=== PATIENT | male | born 1935 | race Caucasian/White ===

== ENCOUNTER 2018-10-10 21:37 | Inpatient (IN) ==
[2018-10-10] MEDS ORDERED: NITROGLYCERIN TOP ONE (21:58)
[2018-10-10] MEDS ORDERED: ASPIRIN PO ONE (21:58)
[2018-10-10 22:20] LABS: EOS% 8.6 % (0.0-10.0); HEMATOCRIT 43.4 % (42.0-52.0); HEMOGLOBIN 14.5 g/dL (14.0-18.0); LYMPH% 20.3 % (20.5-51.1); MCH 27.8 PG (27-31); MCHC 33.4 g/dL (33-37); MCV 83.1 FL (81-99); MONO% 6.9 % (1.7-9.3); NEUT% 63.1 % (42.2-75.2); PLT 154 X1000 (130-400); RBC 5.22 XMIL (4.7-6.1); RDW 14.6 % (11.5-14.5); WBC 6.54 X1000 (4.8-10.8)
[2018-10-10 22:21] LABS: BASO# 0.07 X1000 (0.0-0.2); BASO% 1.1 % (0.0-0.8); EOS# 0.56 X1000 (0.0-0.7); LYMPH# 1.33 X1000 (1.2-3.4); MONO# 0.45 X1000 (0.11-0.59); NEUT# 4.13 X1000 (1.4-6.5)
[2018-10-10 22:33] LABS: CALCIUM 9.7 mg/dL (8.8-10.2); CREATININE 1.5 mg/dL (0.7-1.2); POTASSIUM 4.4 mmol/L (3.5-5.1)
--- NOTE | 2018-10-10 23:42 | EKG Report ---
Test Performed on : 10/10/2018 9:41:54 PM Test Reason : cp Blood Pressure : / mmHG Vent. Rate : 087 BPM Atrial Rate : 087 BPM P-R Int : 000 ms QRS Dur : 084 ms QT Int : 350 ms P-R-T Axes : 000 -18 012 degrees QTc Int : 421 ms Accelerated Junctional rhythm. Nonspecific ST abnormality Abnormal ECG When compared with ECG of 29-NOV-2013 16:29, Junctional rhythm. has replaced Sinus rhythm. Vent. rate has increased BY 32 BPM Unconfirmed Result
[2018-10-11] MEDS ORDERED: DUONEB (A & A) INH ONE (00:27)
[2018-10-11] MEDS ORDERED: DUONEB (A & A) INH PRN (00:27)
[2018-10-11] MEDS ORDERED: ZOFRAN IV PRN (00:29)
[2018-10-11] MEDS ORDERED: TYLENOL PO PRN (00:29)
--- NOTE | 2018-10-11 00:41 | PROVIDER DOCUMENTATION ---
This chart was entered by Sadie Smith Scribe, acting as scribe for Ioana Davies MD. HPI-Chest Pain - General Chief Complaint: Chest Pain Stated Complaint: CHEST PAIN/SOB/HISTORY OF HEART PROBLEMS Time Seen by Provider: 10/10/18 21:49 Source: patient Allergies/Adverse Reactions: Patient Allergies Allergy/AdvReac Type Severity Reaction Status Date / Time poison oak extract Allergy ANAPHYLAXIS Verified 01/09/18 17:44 povidone-iodine Allergy ANAPHYLAXIS Verified 01/09/18 17:44 [From Betadine] shellfish derived Allergy ANAPHYLAXIS Verified 01/09/18 17:44 soap * [From Betadine] Allergy ANAPHYLAXIS Verified 01/09/18 17:44 Home Medications: Home Medication List Medication Instructions Recorded Confirmed Last Taken Type NK [No Home Medications] 07/17/16 01/09/18 Unknown History - History of Present Illness-CP Nature of Presenting Problem: Pt presents to ED W/ CP that he sts has been all day, he sts that the pain has been sharp and constant throughout the day and is accompanied by some chest heaviness and SOB that is worsening. Pt sts that he has had pain intermittently for the last 2 weeks, but tonight it got worse. No cough no fever, no diaphoresis, no nausea. Denies any medical history. Pt sts that he sees his PCP regularly and that he had bloodwork about 2 months ago and everything came back normal. Location: reports: substernal Chest Pain Radiation: reports: no radiation Quality of Pain: reports: sharp Severity in ED: moderate Onset/Duration: this morning, other (throughout the day) Timing: still present Context/Activities at Onset: reports: none Modifying Factors: improves with: nothing Associated Symptoms: denies: abdominal pain, nausea, vomiting Nitro Today/Relief: no nitro taken today Aspirin Treatment Today: no aspirin today Prior Chest Pain/Cardiac Workup: reports: no prior cardiac workup Similar Symptoms Previously?: No Recently Seen Here or By Another Healthcare Provider: No Review of Systems - Adult - REVIEW OF SYSTEMS - ADULT Constitutional: denies: chills, fever Eyes: reports: no symptoms reported Ears, Nose, Mouth & Throat: reports: no symptoms reported Cardiovascular: reports: chest pain Respiratory: reports: cough, shortness of breath. denies: wheezing Gastrointestinal: reports: no symptoms reported. denies: abdominal pain, nausea, vomiting Genitourinary: reports: no symptoms reported Musculoskeletal: reports: no symptoms reported Integumentary: reports: no symptoms reported Neurological: reports: no symptoms reported. denies: dizziness/vertigo, headache/migraines Psychiatric: reports: no symptoms reported Endocrine: reports: no symptoms reported Hematologic/Lymphatic: reports: no symptoms reported Allergic/Immunologic: reports: no symptoms reported All Other Systems: Reviewed and Negative Past History - Adult - PAST MEDICAL HISTORY-ADULT Review of Records: reports: Old Records Reviewed, Nursing Assessment Review, Medications Reviewed, Social history reviewed & non-contributory. Major Childhood Illnesses: reports: denies history Cardiovascular: reports: denies history Respiratory: reports: denies history Gastrointestinal: reports: denies history Obstetrical/Gynecological: reports: denies history Genitourinary: reports: denies history Musculoskeletal: reports: denies history Neurological: reports: Seizures/Epilepsy (seizures ), TIA Psychiatric: reports: denies history Endocrine/Immune: reports: denies history Other Conditions: reports: denies history - PRIOR SURGERIES/PROCEDURES Surgical/Procedure History: reports: appendectomy, cholecystectomy, hernia repair, joint replacement (total hip ) - PRIOR HOSPITALIZATIONS Prior Hospitalizations: reports: none - IMMUNIZATION STATUS Childhood Immunizations: See Nurse Assessment Flu Vaccine: See Nurse Assessment - FAMILY HISTORY Family History: reviewed, not pertinent - SOCIAL HISTORY Smoking: denies, non-smoker Substance Use: none presently/history of abuse Alcohol Use Frequency: never Living Situation: family Physical Exam-General - PHYSICAL EXAM-ADULT Initial Vital Signs Reviewed: Yes - CONSTITUTIONAL General Appearance: appears well, alert, no apparent distress - EYES Eyes: PERRL/EOMI, pink conjunctivae - HEAD, EARS, NOSE, MOUTH & THROAT HENMT: normocephalic/atraumatic, moist mucous membranes, normal ENT inspection - NECK Neck: non-tender, full range of motion, supple, normal inspection - RESPIRATORY Respiratory: chest non-tender, lungs clear, normal breath sounds - CARDIOVASCULAR Cardiovascular: normal peripheral pulses, regular rate, rhythm, no edema, no JVD - GASTROINTESTINAL (ABDOMEN) Abdominal Exam: normal bowel sounds, non tender, soft - MUSCULOSKELETAL Back Exam: normal inspection Extremity: normal range of motion, non-tender, normal gait, normal inspection - SKIN Integumentary: normal color, normal turgor, warm/dry - NEUROLOGIC Neurologic: grossly normal, no motor/sensory deficits - PSYCHIATRIC Psych/Mental Status: normal mood/affect, normal thought content, normal thought process, oriented x 3 - HEART Score HEART Score: History: Highly Suspicious HEART Score: ECG: Non-Specific Repolarization Disturbance/LBBB/PM HEART Score: Age: > or = 65 Years HEART Score: Risk Factors for Atherosclerotic Disease: No Risk Factors Known HEART Score: Troponin: < or = Normal Limit Total HEART Score:: 5 Progress - PLAN OF CARE/RESULTS Progress/Plan/Lab Results: Vital Signs - 8 hr 10/10/18 21:41 10/10/18 22:06 10/10/18 22:31 Temperature 97.7 F Pulse Rate 87 81 78 Respiratory Rate 18 21 22 Blood Pressure 122/75 116/76 138/77 O2 Sat by Pulse Oximetry 96 95 95 10/10/18 22:50 10/10/18 23:00 10/10/18 23:01 Temperature Pulse Rate 80 80 79 Respiratory Rate 20 27 H 21 Blood Pressure 127/95 O2 Sat by Pulse Oximetry 95 95 94 L 10/10/18 23:10 10/10/18 23:20 10/10/18 23:30 Temperature Pulse Rate 80 81 80 Respiratory Rate 21 21 22 Blood Pressure O2 Sat by Pulse Oximetry 94 L 94 L 94 L 10/10/18 23:31 10/10/18 23:40 10/10/18 23:50 Temperature Pulse Rate 80 90 84 Respiratory Rate 22 20 14 Blood Pressure 134/78 O2 Sat by Pulse Oximetry 94 L 94 L 94 L 10/11/18 00:00 10/11/18 00:01 10/11/18 00:10 Temperature Pulse Rate 84 85 90 Respiratory Rate 15 17 15 Blood Pressure 124/67 O2 Sat by Pulse Oximetry 94 L 95 93 L 10/11/18 00:20 10/11/18 00:30 10/11/18 00:31 Temperature Pulse Rate 87 86 86 Respiratory Rate 26 H 20 22 Blood Pressure 115/73 O2 Sat by Pulse Oximetry 94 L 95 94 L Laboratory Results - last 24 hr 10/10/18 10/10/18 10/10/18 22:06 22:06 22:06 WBC 6.54 RBC 5.22 Hgb 14.5 Hct 43.4 MCV 83.1 MCH 27.8 MCHC 33.4 RDW Std Deviation 14.6 H Plt Count 154 MPV 10.0 Immature Gran % (Auto) 0.0 Neut % (Auto) 63.1 Lymph % (Auto) 20.3 L Robeson % (Auto) 6.9 Eos % (Auto) 8.6 Baso % (Auto) 1.1 H Immature Gran # (Auto) 0.00 Neut # (Auto) 4.13 Lymph # (Auto) 1.33 Robeson # (Auto) 0.45 Eos # (Auto) 0.56 Baso # (Auto) 0.07 Sodium 138 Potassium 4.4 Chloride 101 Carbon Dioxide 28 Anion Gap 9 BUN 24 H Creatinine 1.5 H Estimated GFR/1.73 m2 45 BUN/Creatinine Ratio 16 Glucose 103 Calculated Osmolality 280 Calcium 9.7 Troponin T Shj-I-Egyipwlcgle Pept 446 10/10/18 22:06 WBC RBC Hgb Hct MCV MCH MCHC RDW Std Deviation Plt Count MPV Immature Gran % (Auto) Neut % (Auto) Lymph % (Auto) Robeson % (Auto) Eos % (Auto) Baso % (Auto) Immature Gran # (Auto) Neut # (Auto) Lymph # (Auto) Robeson # (Auto) Eos # (Auto) Baso # (Auto) Sodium Potassium Chloride Carbon Dioxide Anion Gap BUN Creatinine Estimated GFR/1.73 m2 BUN/Creatinine Ratio Glucose Calculated Osmolality Calcium Troponin T 0.023 Dqt-B-Fwvovpneidn Pept Orders Category Date Time Status Admit - [facility] Routine AdmDCTranf 10/11/18 00:29 Active Activity - Up with Assistance ORDERED Care 10/11/18 00:29 Active Apply Mechanical Device [QM] ORDERED Care 10/11/18 00:29 Active IV Insertion ORDERED Care 10/10/18 21:58 Completed Intake and Output-Strict ORDERED Care 10/11/18 00:29 Active Vital Signs Order Q 8-HR ASSESS Care 10/11/18 00:29 Active Z-Document. for Tele Applied ORDERED Care 10/11/18 00:29 Active NPO Diet 10/11/18 00:29 Active CHEST-1 VIEW [RAD] Stat Exams 10/10/18 21:58 Taken Chest [CT THORAX W/O CONTRAST] [CT] Stat Exams 10/11/18 00:28 Ordered BASIC METABOLIC PANEL [CHEM] Stat Lab 10/10/18 22:06 Completed CBC WITH DIFF [HEME] Stat Lab 10/10/18 22:06 Completed MAGNESIUM [CHEM] Routine Lab 10/11/18 06:00 Ordered PRO B-NATRIURETIC PEPTIDE Stat Lab 10/10/18 22:06 Completed TROPONIN T Stat Lab 10/10/18 22:06 Completed TSH Routine Lab 10/11/18 06:00 Ordered Acetaminophen [Tylenol] Med 10/11/18 00:29 Active 650 mg PO Q6H PRN PRN Albuterol 2.5MG/Ipratrop 0.5MG [Duoneb (A & A)] Med 10/11/18 00:27 Discontinued 3 ml INH NOW ONE Albuterol 2.5MG/Ipratrop 0.5MG [Duoneb (A & A)] Med 10/11/18 00:27 Active 3 ml INH Q2H PRN PRN Aspirin Med 10/10/18 21:58 Discontinued 325 mg PO NOW ONE Nitroglycerin Med 10/10/18 21:58 Discontinued 0.5 inch TOP NOW ONE Ondansetron [Zofran] Med 10/11/18 00:29 Active 4 mg IV Q4H PRN PRN Aerosol Treatments Routine Oth 10/11/18 00:28 Active Aerosol Treatments Stat Oth 10/11/18 00:28 Active Telemetry [OM.EQ] Routine Oth 10/11/18 00:29 Active EKG [EKG] Stat Ther 10/10/18 21:40 Draft Transfer/Admit Order [TRANSFER] Routine Transfer 10/11/18 00:31 Ordered chest pain will further evaluate for causes including but not limited to acs, arrythmia, muscular pain, chf, pna, pe, ptx Result Diagrams: 10/10/18 22:06 10/10/18 22:06 - REASSESSMENT Reassessment #1 Status: improving (chest pain resolved, ED work up unremarkable but presentation concerning for ACS. Will admit for further evaluation and treatment. Discussed case with Dr. Valdez, hospitalist, who will see and admit pt.) - EKG 1 Time of EKG reading by physician:: 21:44 EKG Read and Signed by:: Ioana Davies EKG Interpretation (*Must complete 3 of following elements*): Abnormal (accle rated junctional rhythm, Nonspecific ST abnormality, Abnormal ECG) Rate: 87 Rhythm: Accelerated junctional rhythm [place]: normal [place] Interval: normal - XRAY 1 XRAY Study: Chest Impression: Normal Departure - Departure Date of Disposition Decision: 10/10/18 Time of Disposition Decision: 23:44 DIAGNOSIS: Chest pain Qualifiers: Chest pain type: unspecified Qualified Code(s): R07.9 - Chest pain, unspecified Disposition: ADMITTED INPATIENT 09 Certified Medical Emergency: Emergent Condition: Good - Critical Care Note This patient required my direct & personal management of CC.: No Attestation - Physician/ BRENDA Attestation Patient care was provided by Advanced Practice Provider:: No The physician spent face to face time with patient:: Yes Advanced Practice Provider documentation review:: Supervising physician onsite and consulted in the evaluation and care of this patient. The physician did have a face to face encounter with the patient. This chart was documented by the indicated scribe, (Sadie Smith, Arunaibremi) and accurately reflects the services I performed and decisions made by me, Ioana Davies MD, as attested by the provider's signature.
[2018-10-11] MEDS: NITROGLYCERIN TOP SCH ×3 (01:00→13:41)
--- NOTE | 2018-10-11 01:51 | HISTORY AND PHYSICAL ---
CHIEF COMPLAINT: Chest pain. HISTORY OF PRESENT ILLNESS: Mr. Duval is an 82-year-old male who looks younger than his stated age. He has no past medical history. His primary care provider is Derek Guevara. He does go for yearly physicals, does not take any home medications. He started having coughing this morning and started having substernal left chest pain. It did not radiate into his neck, back or jaw. It seemed to be a stabbing pain. It was not relieved with nitroglycerin in the emergency room. The patient continues to have chest pain. He will be admitted for further evaluation and treatment. PAST MEDICAL HISTORY: None to note. PREVIOUS SURGICAL HISTORY: 1. Hernia repair. 2. Appendectomy. 3. Volvulus resolution as a child. FAMILY HISTORY: Positive for hypertension. Denies any other chronic illness. SOCIAL HISTORY: He continues to work at [employer], is very active. Has not smoked since his 40s. He did start smoking at age 14. Was never more than a half a pack a day smoker. Has not had any alcohol since 1989. He was never a heavy drinker either. No illicit drugs. is at bedside, very supportive. HOME MEDICATIONS: None. ALLERGIES: Poison phoebe extract, shellfish-derived soap, shellfish and iodine. Shellfish, and shellfish derivatives and IV contrast cause the patient to have anaphylaxis. REVIEW OF SYSTEMS: Fourteen-point review of systems conducted with the patient. Pertinent positives listed above in the HPI. All other systems reviewed and found to be negative. PHYSICAL EXAMINATION: VITAL SIGNS: Temperature 97.7, pulse 78, respirations 22, blood pressure 138/77, oxygen saturation 95% on room air. GENERAL: Pleasant 82-year-old male lying in the ER stretcher, answers all questions appropriately. He is alert and oriented times 3, in no acute distress. HEENT: Head is atraumatic, normocephalic. Pupils equal, round, reactive to light. Extraocular eye movement is intact. Sclerae are anicteric. Conjunctiva is pink. Oral mucosa is moist. NECK: Supple. No JVD. No thyromegaly. Trachea is midline. No cervical lymphadenopathy. CARDIAC: S1, S2 appreciated. No murmurs, gallops or rubs. LUNGS: Expiratory wheezing noted throughout the air lees. Symmetric rise and fall with respirations. No rhonchi. No rales. EXTREMITIES: No clubbing, cyanosis or edema. Two-plus pedal pulses bilaterally. GENITOURINARY: No bladder distention. Patient voids. Otherwise deferred. NEUROLOGIC: Alert and oriented times 3. No focal motor deficits. Otherwise nonfocal examination. SKIN: Warm, dry, intact. DIAGNOSTIC DATA: Chest x-ray: No acute disease. EKG: Nonspecific ST changes. LABORATORY DATA: CBC within normal limits. Chemistry within normal limits aside from BUN of 24 and creatinine of 1.5. Troponin is 0.023. ASSESSMENT AND PLAN: 1. Chest pain, rule out acute myocardial infarction. Patient continues to have chest pain. We will do a stress test tomorrow morning, trend cardiac enzymes. Nitroglycerin half an inch q.6 hours. NPO after midnight. 2. Questionable chronic obstructive pulmonary disease exacerbation versus pneumonia that could not be seen on the plain film. We will order a CT without contrast. We will give DuoNebs q.2 hours as needed for wheezing, a DuoNeb now. The patient denies any type of history of asthma. He continues to still be able to walk long distances. Patient may need to follow up with a specialist or his primary care provider to get pulmonary function tests completed. 3. Chronic kidney disease 3. Patient is around his baseline creatinine of 1.5. Aware. Further recommendations per patient clinical course. Dictated by EDWINA Narvaez for Ashleigh Valdez MD cc: EDWINA Narvaez MD Kenneth E. Mashburn, MD Independent exam and assessment performed by me. Exam only notable for scattered expiratory wheezing. CT thorax does not show any gross infiltrate or edema of note. Cont. with nebs. MTDD
[2018-10-11 03:22] LABS: CK INDEX 2.9 (0.0-2.5); CK-MB 8.12 ng/mL (0.0-5.0)
--- NOTE | 2018-10-11 07:28 | Diag Imaging Result Doc PS360 ---
CHEST-1 VIEW - 10/10/2018 INDICATION: chest pain COMPARISON: 08/26/2016 FINDINGS: The lungs are normally expanded and clear. Heart size and mediastinal contours are normal. No pneumothorax or pleural effusion. IMPRESSION: Negative exam. Electronically signed by Geovani Fischer 10/11/2018 7:26 AM
--- NOTE | 2018-10-11 08:13 | Diag Imaging Result Doc PS360 ---
EXAM: CT THORAX W/O CONTRAST INDICATION: CP, wheezing TECHNIQUE: This exam was performed using automated exposure control, adjustment of mA or kV according to patient size, and/or use of iterative reconstruction technique. COMPARISON: None. FINDINGS: There is mild subsegmental atelectasis at the lung bases. The lungs are grossly clear, otherwise. There is no pleural fluid collection and no pneumothorax. The heart is borderline prominent. There is no evidence of significant mediastinal or hilar lymphadenopathy. Limited views of the upper abdomen reveals a 2.8 cm simple appearing cyst at the upper pole of the right kidney. There are degenerative changes throughout the spine. There is no evidence of acute osseous abnormality. IMPRESSION: Mild subsegmental atelectasis at the lung bases. No definite acute pathology, otherwise. Electronically signed by Sin Parikh 10/11/2018 8:10 AM
--- NOTE | 2018-10-11 08:38 | EKG Report ---
Test Performed on : 10/11/2018 08:29:40 AM Test Reason : cp Blood Pressure : / mmHG Vent. Rate : 070 BPM Atrial Rate : 070 BPM P-R Int : 246 ms QRS Dur : 090 ms QT Int : 394 ms P-R-T Axes : 011 -11 047 degrees QTc Int : 425 ms Sinus rhythm. with 1st degree AV block. Otherwise normal ECG When compared with ECG of 10-OCT-2018 21:41, (Unconfirmed) Sinus rhythm. has replaced Junctional rhythm. Confirmed by Iker Davis MD ([id number]) on 10/13/2018 9:00:13 PM
[2018-10-11] MEDS ORDERED: LEXISCAN ONE (09:30)
[2018-10-11 10:49] LABS: CK INDEX 2.3 (0.0-2.5); CK-MB 7.61 ng/mL (0.0-5.0)
[2018-10-11] MEDS ORDERED: SOLU-MEDROL IV SCH (11:45)
[2018-10-11] MEDS ORDERED: SODIUM BICARBONATE 8.4% 150 MEQ in D5W 1,000 ML IV SCH (12:45)
--- NOTE | 2018-10-11 12:48 | CONSULTATION ---
DATE OF CONSULTATION: 10/11/2018 IMPRESSION: 1. Intermittent left-sided chest discomfort, possibly related to acute bronchitis. The patient does have slight elevation in troponin. ECG is benign. 2. Cough and wheezing suggestive of acute bronchitis. 3. Previous cigarette use in the past. RECOMMENDATIONS: 1. Treat acute bronchitis. We will add parenteral corticosteroids and bronchodilators. 2. Echocardiography. 3. Cancel Lexiscan stress study as the patient demonstrates significant wheezing. 4. Further evaluation of his chest discomfort in this setting might best be accomplished with coronary angiography. This was discussed with the patient. HISTORY: This 82-year-old white male with past history of cigarette use in the past, came to the emergency room with recurrent chest discomfort, shortness of breath as well as cough. The patient describes sharp left-sided chest discomfort that has been occurring very frequently. He has also had cough and shortness of breath. There has been chest pressure as well. There is no past history of cardiac problems. Troponins were slightly elevated. PAST MEDICAL HISTORY: Previous cigarette use in the past. PAST SURGICAL HISTORY: Includes hernia repair, appendectomy, and repair of volvulus as a child. ALLERGIES: He has multiple drug allergies as listed in the electronic medical record. MEDICATIONS PRIOR TO ADMISSION: As listed. SOCIAL HISTORY: Patient is . 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 He has history of previous cigarette use on a regular basis but quit 20 years ago or so. He no longer drinks alcohol, having quit over 20 years ago. FAMILY HISTORY: Positive for hypertension but negative for premature coronary disease. REVIEW OF SYSTEMS: Pulmonary: Noteworthy for shortness of breath, cough and atypical chest pain. Gastrointestinal: Negative. Constitutional: Negative. Remainder of review of systems negative/noncontributory with 14 total systems reviewed. PHYSICAL EXAMINATION: General: This is a pleasant, elderly white male, in no distress. Vital signs: Blood pressure 119/63, heart rate 69. HEENT: Extraocular movements intact. Mucous membranes moist. Neck: Supple. No jugular venous distention. There are no carotid bruits. Chest: Auscultation reveals bilateral scattered expiratory wheezes. Cardiac: Reveals a regular rate and rhythm without appreciable murmur or gallop. Abdomen: Soft. Bowel sounds normal. Extremities: Without edema. Neurologic: Reveals him to be alert and fully oriented. Speech is fluent and he moves all 4 extremities equally well. Skin: Warm and dry. Psychiatric: Reveals mood to be appropriate. DIAGNOSTIC DATA: A 12 lead EKG demonstrates sinus rhythm with first degree AV block. LABORATORY DATA: Includes a sodium 138, potassium 4.4, chloride 101, carbon dioxide 28, BUN 24, creatinine 1.5, glucose 103. White blood cell count 6.54, hematocrit 43.4, hemoglobin 14.5, platelet count 154,000. Magnesium 2.0. TSH 4.69. Initial troponin T 0.023. Followup troponin T 0.012 and third troponin T of 0.025. CPK initially 200 with followup CPK of 330. CPK/MB index 2.9. cc: Osorio Johnson MD
[2018-10-11] MEDS: SOLU-MEDROL IV SCH ×2 (13:04→21:00)
--- NOTE | 2018-10-11 14:18 | Diag Imaging Result Document ---
PROCEDURE NAME: MYOCARDIAL PERFU SCAN, REST - 10/11/2018 INDICATION: Chest pain. PROCEDURE PERFORMED: Rest myocardial perfusion imaging. PROCEDURE IN DETAIL: Mr. Duval was brought to the nuclear laboratory and had a resting study performed with injection of 15.9 mCi of technetium-99m sestamibi with usual imaging protocol utilized. FINDINGS: 1. No evidence of abnormal extracardiac uptake. 2. Rest perfusion imaging demonstrates a small size, mild intensity defect located in the mid and basal inferior segments. Gating was not performed on this study. This was a rest only study. cc: MD Charlie Dior CRNP
[2018-10-11] MEDS: DUONEB (A & A) INH SCH ×4 (14:28→23:35)
--- NOTE | 2018-10-11 15:58 | ECHO REPORT ---
ORDER DATE: 10/11/2018 INDICATIONS: Chest pain. FINDINGS: 1. Right atrium is normal in size at 3 cm. 2. Mild tricuspid regurgitation. RV systolic pressure of 35. 3. Normal RV size and systolic function. 4. Trace pulmonic insufficiency. 5. Mild left atrial enlargement with a dimension of 4.1 cm. 6. No mitral valve prolapse. Mild mitral regurgitation. No evidence of mitral stenosis. 7. Normal LV size, end-diastolic dimension of 5 cm. Mild left ventricular hypertrophy with a posterior and interventricular septal wall thickness 1.0 and 1.2 cm respectively. Normal LV systolic function. Estimated EF of 60% to 65%. 8. Aortic valve opens well. There is mild to moderate aortic insufficiency. No stenosis. The valve is trileaflet. 9. Aorta is dilated at the root with a dimension of 5 cm. 10. No pericardial effusion identified. cc: MD Kelby Dior MD
--- NOTE | 2018-10-11 17:55 | CONSULTATION ---
DATE OF CONSULTATION: 10/11/2018 REQUESTING PHYSICIAN: Kelby Basilio MD REASON FOR CONSULTATION: Possible COPD. HISTORY OF PRESENT ILLNESS: This is an 82-year-old male with a medical history of chronic kidney disease. He presented to the ER last night with chest pain accompanied by chest heaviness and shortness of breath. Initial CXR in the ER is not significant. CT chest without contrast this morning showing mild subsegmental atelectasis at the lung bases, but no definite acute pathology. He has been admitted to the medical floor with chest pain to rule out acute myocardial infarction and questionable COPD exacerbation versus pneumonia. At the time of my examination, patient just came back from echocardiogram. He reports chronic cough with some yellow, thick phlegm occasionally, wheezing, shortness of breath, acute sinus headache and chronic intermittent chest pain. He reports his cough suddenly became really bad yesterday morning. He coughed so much that eventually he developed sharp constant chest pain and acute right hip pain. The patient did report that he has been evaluated by some crane rigger back in 2009 for dyspnea on exertion, but he has been never diagnosed with COPD. He reports no palpitation, fever, chill, abnormal weight change, heartburn, pedal edema or paroxysmal nocturnal dyspnea. PAST MEDICAL HISTORY: Chronic kidney disease, stage 3. PREVIOUS SURGERY: 1. Hernia repair. 2. Appendectomy. 3. Volvulus resolution as a child. 4. Bilateral hip replacement. FAMILY HISTORY: Positive for hypertension. SOCIAL HISTORY: The patient is and lives with his at home. He works for [employer] most of the time during the week. He started smoking at 14yo, but quit at 40 yo. He has about a [id number] smoking history. He used to drink and quit since 1989. He has no illicit drug use. ALLERGIES: Poison oak extract, shellfish derived and Betadine. REVIEW OF SYSTEMS: A 10-point review of systems was conducted, and the pertinent is listed within the HPI, otherwise not contributory. PHYSICAL EXAMINATION: Vital Signs: Temperature 98.3 degrees, blood pressure 137/41, pulse 79, respiratory rate 18, oxygen saturation 97% on room air. General: Appears younger than stated age. Sitting on the edge of the bed with his at the bedside. In no acute distress. HEENT: Atraumatic. Trachea midline. Mucosa pink and moist. Right eyelid drooping noted. Respiratory: Audible wheezing, but no accessory muscle use noted. Auscultation revealed prolonged expiratory phase and expiratory wheezing throughout all the lung lees. Cardiovascular: Regular rate and rhythm. Gastrointestinal: Nontender. Bowel sounds normoactive in all 4 quadrants. Soft and mildly distended. Extremities: No pedal edema. Dorsalis pedis 2+ bilaterally. No cyanosis and no clubbing. Neurologic: Alert. Weakness in the bilateral extremities with RLE worse. Speech fluent. Follows commands. Alert, oriented x3. LABORATORY DATA: CK is 330, CK-MB 7.61. IMAGING DATA: See HPI. ASSESSMENT: This is an 82-year-old male with chronic kidney disease stage 3. He has been admitted to the medical floor since this morning with chest pain and suspected chronic obstructive pulmonary disease exacerbation versus pneumonia. 1. Suspected chronic obstructive pulmonary disease exacerbation. 2. Left-sided chest pain which is worse with cough. 3. Mild subsegmental atelectasis at the lung bases per CT without contrast. 4. Chronic cough which is worse significantly since yesterday. 5. Chronic dyspnea on exertion. PLAN: 1. Start supplemental oxygen if needed. 2. Continue antibiotic, steroid, and bronchodilators per Dr. Johnson. 3. Recommend outpatient pulmonary function test if patient's heart condition allows. Thank you for the courtesy of this consult. Dictated by EDWINA Haney for Kenn Yates MD cc: EDWINA Haney MD [facility]
[2018-10-11 18:28] LABS: CK INDEX 1.5 (0.0-2.5); CK-MB 6.51 ng/mL (0.0-5.0)
[2018-10-12] MEDS: NITROGLYCERIN TOP SCH ×4 (02:48→19:41)
[2018-10-12] MEDS: DUONEB (A & A) INH SCH ×2 (03:21→07:39)
[2018-10-12] MEDS: SOLU-MEDROL IV SCH ×4 (04:50→20:43)
[2018-10-12 05:41] LABS: INR 0.95; PROTIME 13.4 Seconds (11.0-16.0)
[2018-10-12] MEDS ORDERED: PHENERGAN WITH CODEINE LIQUID PO PRN (05:44)
[2018-10-12 05:51] LABS: CALCIUM 8.9 mg/dL (8.8-10.2); CREATININE 1.2 mg/dL (0.7-1.2); MAGNESIUM 1.9 mg/dL (1.5-2.7)
--- NOTE | 2018-10-12 07:26 | EKG Report ---
Test Performed on : 10/12/2018 06:16:47 AM Test Reason : [facility] Blood Pressure : / mmHG Vent. Rate : 086 BPM Atrial Rate : 086 BPM P-R Int : 228 ms QRS Dur : 092 ms QT Int : 378 ms P-R-T Axes : 046 -13 005 degrees QTc Int : 452 ms Sinus rhythm. with 1st degree AV block. Moderate voltage criteria for LVH, may be normal variant Nonspecific T wave abnormality Inferior leads Borderline ECG When compared with ECG of 11-OCT-2018 08:29, (Unconfirmed) Nonspecific T wave abnormality now evident in Inferior leads Confirmed by Iker Davis MD ([id number]) on 10/13/2018 9:08:40 PM
[2018-10-12] MEDS: BENADRYL IV ONE ×2 (07:54→08:04)
[2018-10-12] MEDS: LEVAQUIN 500 MG/D5W 500 MG/100 ML IVPB IV SCH ×2 (07:55→08:04)
[2018-10-12] MEDS: ASPIRIN PO SCH ×2 (07:55→08:04)
[2018-10-12 08:03] LABS: ALLEN TEST YES; BE 0.8 mmoll (-3.0-3.0); BLOOD TYPE ARTERIAL; HCO3-(ACT) 25.5 mmoll (20.0-26.0); METHB 1.4 % (0.0-1.5); O2(CT) 18.6 mL/dL (15.0-23.0); O2HB 94.4 % (95.0-99.0); PCO2(98.6) 39 mmHg (35-45); PO2(98.6) 77 mmHg (60-100); SAMPLE BLOOD; pH(98.6) 7.42 (7.35-7.45)
[2018-10-12 08:04] LABS: MODALITY CANNULA
--- NOTE | 2018-10-12 08:54 | PROGRESS NOTE ---
DATE: 10/12/2018 SUBJECTIVE: Patient reports feeling fine. Still reporting some shortness of breath. Denies any more episodes of chest pain. According to who is at bedside, he started coughing for the last 3 days. No fever. Denied any sick contacts. OBJECTIVE: Vital Signs: Temperature 98.5, heart rate 89, respiratory rate 18, blood pressure 139/60, and O2 saturation 95% on 3 L nasal cannula. General: This is an 82-year-old male lying in bed in no acute distress. Cardiovascular: S1, S2 heard. No murmurs, gallops, or rubs. Regular rate and rhythm. Respiratory: Expiratory wheezing noted in both pulmonary lees. Patient is not using any accessory muscles or having work of breathing. Abdomen: Soft. A little bit distended but nontender to palpation. Bowel sounds present. No organomegaly. Extremities: No clubbing. No cyanosis or edema. Peripheral pulses present in both legs. Neurological: Patient is alert and oriented x3. Moves all 4 extremities. LABORATORY DATA: Troponin has been checked 3 times. There has been a mild elevation of troponin's. We have checked it actually 4 times, and those are within normal limits. TSH is slightly elevated. CK-MB was mildly elevated as well. ASSESSMENT AND PLAN: 1. Acute respiratory failure secondary to acute bronchitis. The patient has been evaluated by Pulmonary. The patient has been started on Levaquin. IV steroids and DuoNeb. At this point, we will continue with the same management. The patient does have a remote history of smoking. He may need to have a pulmonary function test as an outpatient to diagnose and determine if he has COPD or not. 2. Chest pain. This is the reason why basically why this patient came to the hospital. We have ordered troponin's. They were really mildly elevated. We at admission there was an order for a Lexiscan and a stress test. The rest part of the study shows no evidence of abnormal extracardiac uptake, and just shows small size mild intensity defect located in the mid and basal inferior segment. At this point, considering that this patient is wheezing, Cardiology who has been consulted decided to cancel this procedure and do left heart catheterization. We will see what that exam shows. 3. Acute kidney injury, resolved. 4. Disposition. At this point, the patient is going to stay in the CIC unit until we know the results of the left heart catheterization. We will continue with treatment for acute bronchitis. We will continue to monitor this patient closely. cc: Kelby Basilio MD MTDD
[2018-10-12] MEDS ORDERED: HEPARIN 1000 UNITS/NS 2,000 UNIT/1,000 ML IV.SOLN ONE (09:39)
[2018-10-12] MEDS ORDERED: DILAUDID ONE (10:12)
[2018-10-12] MEDS ORDERED: ANESTHESIA PB SET 88 IN 5742 ONE (10:12)
[2018-10-12] MEDS ORDERED: CLAVE TWINSITE 32 IN 11959 ONE (10:12)
[2018-10-12] MEDS ORDERED: VERSED ONE (10:12)
[2018-10-12] MEDS ORDERED: NS 1,000 ML ONE (10:13)
[2018-10-12] MEDS ORDERED: ZOFRAN ONE (10:19)
[2018-10-12] MEDS: ATROVENT NEB INH SCH ×4 (10:57→22:59)
[2018-10-12] MEDS ORDERED: SODIUM CHLORIDE 0.9% INJ ONE (11:00)
[2018-10-12] MEDS ORDERED: PHENERGAN IV ONE (11:00)
--- NOTE | 2018-10-12 13:58 | CARDIAC CATH REPORT ---
PROCEDURE NAME: - INDICATION: Elevation of the troponin. Chest pain. PROCEDURES PERFORMED: 1. Left heart catheterization. 2. Selective coronary angiography. PROCEDURE IN DETAIL: Parish Duval was brought to the catheterization laboratory in fasting state. Informed consent was obtained. Prepped in usual fashion. He was anesthetized over the right radial artery after Minh's test proved adequate. A 5-Hungarian sheath was placed via true Seldinger technique. Radial cocktail was administered. Catheters were introduced. Hemodynamic measurements made in the ascending thoracic aorta. Coronary angiography was performed in multiple views using JL3.5 and JR4 diagnostic catheters. Left heart catheterization was performed using the JR4. At the conclusion of the procedure, a TR band was left inflated at 12 mL of air with good capillary refill. Good hemostasis. No apparent complications. CONTRAST: 55 mL of IV contrast. BLOOD LOSS: 5-10 mL of low blood loss. FINDINGS: 1. 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 2. 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 There is a relatively large D 1 with a proximal 30% diffuse disease. 3. Circumflex originates from the left main. It is aneurysmal in the proximal segment, but otherwise the mid and distal vessel appears normal. 4. Right coronary originates from the right coronary cusp. It is normal throughout its course. The PDA originates from the circumflex. 5. Aortic blood pressure is 116/69 with a mean of 92. Left ventricular pressure is 125/10 with an LVEDP of 16. ASSESSMENT: Mr. Duval is an 82-year-old gentleman who presented with what seemed to be a bronchitis/chronic obstructive pulmonary disease exacerbation. He had a troponin elevation and shortness of breath and chest pain. PLAN: At this point, he does not appear to have any flow-limiting lesions. He has aneurysmal segments in the LAD and circumflex, as well as the left main, but does not appear to have any obstructive disease. He had a very tortuous aorta in trying to pass catheters down to the proximal aorta. He may benefit from imaging of the thoracic aorta. cc: Nathaniel Sandoval MD
--- NOTE | 2018-10-12 18:15 | PROGRESS NOTE ---
DATE: 10/12/2018 SUBJECTIVE: Patient reports feeling much better today. His cough has markedly diminished. He had coronary angiography today which demonstrated mild multivessel coronary atherosclerosis. OBJECTIVE: Vital signs: Blood pressure 92/45, heart rate 95 and regular. Oxygen saturation 95% percent on nasal cannula oxygen. There is no significant jugular venous distention. Chest: Clear to auscultation. Cardiac: Reveals a regular rate and rhythm without appreciable murmur or gallop. There is no evidence of peripheral edema. LABORATORY DATA: Includes a sodium 136, potassium 4.0, chloride 100, carbon dioxide 25, BUN 20, creatinine 1.2. Glucose 163. IMPRESSION: 1. Atypical chest pain probably related to acute bronchitis. Patient appears to have improved clinically with treatment for acute bronchitis. 2. Mild nonobstructive coronary atherosclerosis. RECOMMENDATIONS: 1. Continue to treat for acute bronchitis. 2. Medical management of patient's coronary atherosclerosis. We will discontinue topical nitrates. Continue aspirin daily. Reasonable from a cardiovascular standpoint for patient to be discharged to home soon. cc: Osorio Johnson MD MTDD
[2018-10-13] MEDS: NITROGLYCERIN TOP SCH ×3 (00:23→14:38)
[2018-10-13] MEDS: ATROVENT NEB INH SCH ×3 (03:26→11:09)
[2018-10-13] MEDS: SOLU-MEDROL IV SCH (05:24)
[2018-10-13] MEDS ORDERED: LOVENOX SUBQ SCH (06:00)
[2018-10-13] MEDS: ASPIRIN PO SCH (08:42)
[2018-10-13] MEDS: LEVAQUIN 500 MG/D5W 500 MG/100 ML IVPB IV SCH (08:42)
[2018-10-13 11:31] VITALS: BP 103/60
--- NOTE | 2018-10-13 14:42 | DISCHARGE SUMMARY ---
ADMISSION DATE: 10/11/2018 DISCHARGE DATE: 10/13/2018 DISCHARGE DIAGNOSES: 1. Acute bronchitis. 2. Nonobstructive coronary artery disease. 3. Atypical chest pain. CONSULTATIONS: 1. Cardiology. 2. Pulmonary. PROCEDURES: Cardiac catheterization, left heart cardiac catheterization. Briefly this is a 82-year-old male presenting with atypical chest pain, shortness of breath, reportedly no medical history, questionable COPD. He was placed on breathing treatments, nitroglycerin. CT scan showed some atelectasis but nothing else. No clear issues with COPD. Echocardiogram showed a normal EF 60 to 65 percent. No major valvular abnormalities. Mild left ventricular hypertrophy. Myocardial perfusion scan showed a small size mild intensity defect located in mid and basal inferior segments. This was a resting study alone. Dr. Johnson evaluated him and he could not complete the myocardial perfusion because of wheezing so they pursued coronary angiography. Dr. Yates was consulted, made recommendations. Now there was discussion of steroids but they have not been started. In any case patient was available. His cardiac catheterization showed LAD with mild to moderate diffuse disease, no more than 20 to 30 percent midvessel, 30 to 40 percent distal vessel, large diagonal, D1 30%, circumflex was okay, RCA was okay. Medical management recommended. He was observed. Following day he did fine. We ambulated him. His saturations maintained around 96%. He had no shortness of breath, no wheezing and he was felt stable for discharge. DISCHARGE MEDICATIONS: Lipitor 20, aspirin 81, new medications Combivent inhaler q.6, Levaquin 500 p.o. daily for 7 days and then prednisone 20 for 5 days. DISCHARGE CONDITION: Stable. FOLLOWUP: With [facility]CP and [facility] in [address] [facility] [address] Yates in 2 to 4 weeks. He will need outpatient pulmonary function tests. TIME SPENT: 35 minutes. cc: Terry Alvarado MD
== END 2018-10-13 15:29 | disposition home or self-care (01) | DRG 202 ==
LOC: ED 21:37 → SUATTDRO 10-11 01:47 → 3N 10-11 01:47 → 3S 10-11 18:13
PROVIDERS: ATTEND Internal Medicine
CPT/HCPCS: 71010; 71045; 71250; 78451; 80048; 80061; 82550; 82553; 82805; 83721; 83735; 83880; 84443; 84484; 85025; 85610; 93005; 93010; 93306; 93458; 94640; 94760; 94761; 94799; 99285; A9270; A9500; J1170; J1200; J1644; J1650; J1956; J2250; J2405; J2785; J2920; J2930; J7030; J7070; Q9967